=== PATIENT | female | born 1985 | race Two or more races ===

== ENCOUNTER 2022-11-23 14:04 | Emergency (ER) | payer OTHER ==
[2022-11-23 14:16] VITALS: BP 113/78; PULSE 77; RESP 18; TEMP 98; BMI 36.6
== END 2022-11-23 15:53 | disposition home or self-care (01) ==
LOC: JERFT 14:04
DX: J34.89 Other specified disorders of nose and nasal sinuses (principal); Q30.3 Congenital perforated nasal septum
CPT/HCPCS: 99283-25